=== PATIENT | male | born 1990 | race Caucasian/White ===

== ENCOUNTER 2016-05-30 21:04 | Emergency (ER) | payer OTHER | END 2016-05-30 23:15 | disposition left against medical advice (07) | LOC: ER 21:04 | DX: Z53.21 Procedure and treatment not carried out due to patient leaving prior to being seen by health care provider (principal) | CPT/HCPCS: 99211 ==

== ENCOUNTER 2016-06-30 22:16 | Emergency (ER) | payer OTHER | END 2016-07-01 03:02 | disposition home or self-care (01) | LOC: ER 22:16 | DX: T24.231A Burn of second degree of right lower leg, initial encounter (principal); X12.XXXA Contact with other hot fluids, initial encounter; Y92.410 Unspecified street and highway as the place of occurrence of the external cause; J42 Unspecified chronic bronchitis; Z91.013 Allergy to seafood | CPT/HCPCS: 99070; 99282 ==

== ENCOUNTER 2016-07-21 21:51 | Emergency (ER) | payer OTHER | END 2016-07-22 02:50 | disposition home or self-care (01) | LOC: ER 21:51 | DX: M54.5 Low back pain (principal); W01.0XXA Fall on same level from slipping, tripping and stumbling without subsequent striking against object, initial encounter; Z91.013 Allergy to seafood | CPT/HCPCS: 72100; 96372; 99283-25 ==

== ENCOUNTER 2016-07-27 00:21 | Emergency (ER) | payer OTHER ==
[2016-07-27 01:08] LABS: BASO % 0.2 % (0.2-1.2); EOS # 0.3 10_X3_uL (0.0-0.5); EOS % 1.7 % (0.8-7.0); GRAN # 8.3 10_X3_uL (1.8-5.4); GRAN % 57.4 % (34.0-67.9); HEMOGLOBIN 15.8 g/dL (13.7-17.5); LYMPH % 34.2 % (21.8-53.1); MEAN CORPUSCULAR HEMOGLOBIN 30.6 pg (27.0-33.0); MEAN CORPUSCULAR HGB CONC 34.3 g/dL (32.0-36.0); MEAN PLATELET VOLUME 9.5 fl (7.5-11.5); MONO % 6.5 % (5.3-12.2); PLATELET COUNT 254 x10_3/uL (163-337); RED BLOOD COUNT 5.17 x10_6/uL (4.6-6.1); RED CELL DISTRIBUTION WIDTH 13.9 % (11.6-14.4); WHITE BLOOD COUNT 14.5 x10_3/uL (4.2-9.1)
[2016-07-27 01:18] LABS: URINE BILIRUBIN NEGATIVE (NEGATIVE); URINE BLOOD TRACE (NEGATIVE); URINE GLUCOSE (UA) NORMAL (NORMAL); URINE KETONE NEGATIVE (NEGATIVE); URINE LEUKOCYTE ESTERASE TRACE (NEGATIVE); URINE NITRATE NEGATIVE (NEGATIVE); URINE PROTEIN TRACE (NEGATIVE); UROBILINOGEN NORMAL mg/dL (<1.0)
[2016-07-27 01:22] LABS: ALBUMIN 4.6 gm/dL (3.4-5.0); ALKALINE PHOSPHATASE 47 U/L (50-136); ALT/SGPT 57 U/L (7.53-40.17); AST/SGOT 26 U/L (6.66-35.34); BILIRUBIN,TOTAL 0.64 mg/dL (0.0-1.0); BLOOD UREA NITROGEN 15 mg/dL (7-18); CALCIUM 9.1 mg/dL (8.7-10.7); CARBON DIOXIDE 24 mmol/L (21-32); CREATININE 0.7 mg/dL (0.6-1.3); GLUCOSE,RANDOM 101 mg/dL (70-99); POTASSIUM 3.6 mmol/L (3.5-5.1); SODIUM 136 mmol/L (136-145)
[2016-07-27 01:44] LABS: URINE BACTERIA TRACE (NONE SEEN); URINE RBC 0-5 /[HPF] (0-2); URINE SQUAMOUS EPITHELIAL CELL 0-10 /[HPF] (NONE SEEN); URINE WBC 0-5 /[HPF] (0-3)
== END 2016-07-27 03:30 | disposition home or self-care (01) ==
LOC: ER 00:21
PROVIDERS: Emergency Medicine
DX: K52.9 Noninfective gastroenteritis and colitis, unspecified (principal); R30.0 Dysuria; Z87.442 Personal history of urinary calculi; J44.9 Chronic obstructive pulmonary disease, unspecified; Z90.49 Acquired absence of other specified parts of digestive tract; F17.210 Nicotine dependence, cigarettes, uncomplicated
CPT/HCPCS: 36415; 74150; 80053; 81001; 85025; 99283-25; J8597; Q0169